=== PATIENT | female | born 1975 | race Caucasian/White ===

== ENCOUNTER → 2021-08-13 | Day surgery (SDC) | payer BC ==
[~2021-08-13] MED LIST: ATIVAN0.5 MG PO; CLARITIN10 MG PO; COLACE 100MG C100 MG PO; GABAPENTIN600 MG PO; IBU600 MG PO; NORCO 7.5-3251 EACH PO; PHENERGAN 25 MG25 M1 PO; REQUIP XL2 MG PO; ZANAFLEX4 MG PO; [UNRECOGNIZED DRUG - OTHER] TP
[2021-08-13 06:59] LABS: HEMOGLOBIN 11.5 gm/dl (12.3-15.3); RED BLOOD COUNT 3.87 M/UL (4.00-5.10); WHITE BLOOD COUNT 6.1 K/UL (4.5-11.0)
== END | disposition home or self-care (01) ==
LOC: OR 06:15
PROVIDERS: Obstetrics & Gynecology
DX: N93.9 Abnormal uterine and vaginal bleeding, unspecified (principal); N92.0 Excessive and frequent menstruation with regular cycle; K21.9 Gastro-esophageal reflux disease without esophagitis; Z79.899 Other long term (current) drug therapy; Z90.49 Acquired absence of other specified parts of digestive tract; Z80.9 Family history of malignant neoplasm, unspecified; Z82.49 Family history of ischemic heart disease and other diseases of the circulatory system
CPT/HCPCS: 81001; 84702; 85025; J1100; J1170; J1885; J2250; J2405; J2704; J2795; J3010; J7030; J7120